=== PATIENT | female | born 1945 | race Two or more races ===

== ENCOUNTER 2017-01-14 19:24 | Emergency (ER) | payer MEDICARE, OTHER ==
[2017-01-14 20:51] VITALS: BP 102/66
--- NOTE | 2017-01-14 21:37 | EDM.PDOC ---
ED HPI GENERAL MEDICAL PROBLEM - General Chief Complaint: Chest Pain Stated Complaint: chest pains Time Seen by Provider: 01/14/17 19:33 Source of Information: Reports: Patient History Limitations: Reports: No Limitations - History of Present Illness INITIAL COMMENTS - FREE TEXT/NARRATIVE: History of present illness: [71-year-old female presenting with chest pressure in her upper chest nonradiating associated with some nausea no vomiting diaphoresis lightheadedness or shortness of breath. She's not had anything like this before. She was working outside in the garden all day and doing well and feeling fine and came in was just sitting down relaxing when this came on. She did finally admit that she has tried to quit smoking and she took 2 puffs of the cigarettes and that's when the pain started. He went on for 3 hours and then she finally decided to come in but upon arrival here it seemed to be clearing up and soon after arrival the pain dissipated without any intervention on our part. She has no prior history of coronary disease but does have a history of carotid artery disease and had an endarterectomy on the left side several years ago. She's also status post a gastric bypass. She is on simvastatin for cholesterol. While here she was hungry we gave her some food to eat and afterwards she was very happy and felt like she was a half percent and anxious to go home and was pain-free.] Review of systems: As per history of present illness and below otherwise all systems reviewed and negative. Past medical history: As per history of present illness and as reviewed below otherwise noncontributory. Surgical history: As per history of present illness and as reviewed below otherwise noncontributory. Social history: No reported history of drug or alcohol abuse. Family history: As per history of present illness and as reviewed below otherwise noncontributory. Physical exam: HEENT: Atraumatic, normocephalic, pupils reactive, negative for conjunctival pallor or scleral icterus, mucous membranes moist, throat clear, neck supple, nontender, trachea midline. Lungs: Clear to auscultation, breath sounds equal bilaterally, chest nontender. Heart: S1S2, regular, she does have a 3/6 systolic ejection murmur which she is aware of and apparently has had echocardiogram in the past. I am suspicious this may be an aortic stenosis murmur. Abdomen: Soft, nondistended, nontender. Negative for masses or hepatosplenomegaly. Negative for costovertebral tenderness. Extremities: Atraumatic, negative for cords or calf pain. Neurovascular unremarkable. Neuro: Awake, alert, oriented. Cranial nerves II through XII unremarkable. Cerebellum unremarkable. Motor and sensory unremarkable throughout. Exam nonfocal. Diagnostics: [chest x-ray is unremarkable showing chronic changes from smoking EKG initially had some artifact second EKG does show LVH. No evidence of ischemia or infarct. She is in sinus rhythm. Troponin was negative. She displayed no dysrhythmias while here.] Therapeutics: [] Impression: [chest pain spontaneously resolved] Plan: [she does have significant risk factors with a history of smoking gastric bypass hypercholesterolemia LVH and possible aortic stenosis murmur. I'm her urging her to followup with her primary care physician as soon as possible for consideration of cardiac stress test or perhaps even seeing a flour mixer. This was discussed with her at length. We also discussed the typical symptoms for coronary disease and angina and she's to return to the emergency room immediately if these occur.] Definitive disposition and diagnosis as appropriate pending reevaluation and review of above. Chest Pain Score (Numeric/FACES): 5 - Related Data Allergies Allergy/AdvReac Type Severity Reaction Status Date / Time No Known Allergies Allergy Verified 01/14/17 19:45 Home Meds: Home Meds Aspirin [Adult Low Dose Aspirin EC] 81 mg PO DAILY 01/16/14 [History] Citalopram Hydrobromide [Celexa] 20 mg PO DAILY 01/16/14 [History] Cyanocobalamin (Vitamin B12) [Vitamin B12] 1,000 mcg IM Q30D 01/16/14 [History] Multivitamin [Multivitamins] 1 each PO BID 01/16/14 [History] Simvastatin [Zocor] 20 mg PO BEDTIME 01/16/14 [History] Vitamin B Complex [B-100 Complex] 1 each PO DAILY 01/16/14 [History] Iron,Carbonyl/Ascorbic Acid [Iron 100-Vitamin C Tablet] 1 each PO DAILY [History] Melatonin/Pyridoxine HCl (B6) [Melatonin 10 mg Tablet] 1 each PO BEDTIME [History] Past Medical History Cardiovascular History: Reports: Heart Murmur, High Cholesterol Respiratory History: Reports: Sleep Apnea Other Respiratory History: c-pap Gastrointestinal History: Reports: Cholelithiasis 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: Musculoskeletal History: Reports: Arthritis, Osteoporosis Psychiatric History: Reports: Depression Other Endocrine/Metabolic History: has growth on thyroid they are tracking Hematologic History: Reports: B12 Deficiency, Iron Deficiency, Other (See Below) Other Hematologic History: calcium low - Infectious Disease History Infectious Disease History: Reports: Chicken Pox, Measles, Mumps - Past Surgical History HEENT Surgical History: Reports: Tonsillectomy Cardiovascular Surgical History: Reports: Carotid Endarterectomy GI Surgical History: Reports: Appendectomy, Bariatric Procedure, Cholecystectomy , Colonoscopy, EGD, Hernia, Abdominal Female Surgical History: Reports: Tubal Ligation Social & Family History - Tobacco Use Smoking Status *Q: Current Some Day Smoker Years of Tobacco use: 20 Packs/Tins Daily: 0.1 Used Tobacco, but Quit: Yes Month Tobacco Last Used: 12 Second Hand Smoke Exposure: No - Caffeine Use Caffeine Use: Reports: Coffee - Alcohol Use Days Per Week of Alcohol Use: 0 - Recreational Drug Use Recreational Drug Use: No ED ROS GENERAL - Review of Systems Review Of Systems: ROS reveals no pertinent complaints other than HPI. ED EXAM, GENERAL - Physical Exam Exam: See Below Course - Vital Signs Last Recorded V/S: Last Vital Signs Temp 36.3 C 01/14/17 19:43 Pulse 60 01/14/17 20:30 Resp 12 01/14/17 20:30 BP 102/66 01/14/17 20:30 Pulse Ox 95 01/14/17 20:30 - Orders/Labs/Meds Orders: Active Orders 24 hr Category Date Time Status EKG Documentation Completion [RC] ASDIRECTED Care 01/14/17 19:46 Active EKG Documentation Completion [RC] ASDIRECTED Care 01/14/17 21:13 Active Chest 1V Frontal [CR] Stat Exams 01/14/17 19:45 Taken EKG 12 Lead [EK] Stat Ther 01/14/17 19:45 Ordered EKG 12 Lead [EK] Stat Ther 01/14/17 21:13 Ordered Labs: Laboratory Tests 01/14/17 01/14/17 Range/Units 20:00 20:00 WBC 6.4 (4.5-11.0) K/uL RBC 4.52 (3.30-5.50) M/uL Hgb 13.7 (12.0-15.0) g/dL Hct 40.4 (36.0-48.0) % MCV 89 (80-98) fL MCH 30 (27-31) pg MCHC 34 (32-36) % Plt Count 292 (150-400) K/uL Neut % (Auto) 53 (36-66) % Lymph % (Auto) 38 (24-44) % [place] % (Auto) 6 (2-6) % Eos % (Auto) 3 (2-4) % Baso % (Auto) 1 (0-1) % Sodium 139 L (140-148) mmol/L Potassium 4.0 (3.6-5.2) mmol/L Chloride 105 (100-108) mmol/L Carbon Dioxide 27 (21-32) mmol/L Anion Gap 11.0 (5.0-14.0) mmol/L BUN 13 (7-18) mg/dL Creatinine 0.8 (0.6-1.0) mg/dL Est Cr Clr Drug Dosing 52.58 mL/min Estimated GFR (MDRD) > 60 (>60) Glucose 91 (74-106) mg/dL Calcium 9.1 (8.5-10.1) mg/dL Total Bilirubin 0.2 (0.2-1.0) mg/dL AST 29 (15-37) U/L ALT 15 (12-78) U/L Alkaline Phosphatase 65 (46-116) U/L Troponin I < 0.017 (0.000-0.056) ng/mL Total Protein 6.2 L (6.4-8.2) g/dL Albumin 3.2 L (3.4-5.0) g/dL Globulin 3.0 (2.3-3.5) g/dL Albumin/Globulin Ratio 1.1 L (1.2-2.2) Departure - Departure Time of Disposition: 21:36 Disposition: Home, Self-Care 01 Condition: good Clinical Impression: Chest pain at rest Forms: ED Department Discharge Additional Instructions: please followup with your primary care DrFilipe as soon as possible and discuss the possibility of undergoing a cardiac stress test or been referred to a flour mixer. You have significant risk factors for heart trouble with your murmur and the LVH that we discussed. Certainly if you have began experiencing the symptoms that we discussed that are consistent with heart pain or angina you need to return to the emergency room immediately. - My Orders Last 24 Hours: My Active Orders 01/14/17 19:45 Chest 1V Frontal [CR] Stat EKG 12 Lead [EK] Stat 01/14/17 19:46 EKG Documentation Completion [RC] ASDIRECTED 01/14/17 21:13 EKG Documentation Completion [RC] ASDIRECTED EKG 12 Lead [EK] Stat - Assessment/Plan Last 24 Hours: My Active Orders 01/14/17 19:45 Chest 1V Frontal [CR] Stat EKG 12 Lead [EK] Stat 01/14/17 19:46 EKG Documentation Completion [RC] ASDIRECTED 01/14/17 21:13 EKG Documentation Completion [RC] ASDIRECTED EKG 12 Lead [EK] Stat
--- NOTE | 2017-01-15 08:55 | CR ---
Chest 1V Frontal INDICATION: chest pain FINDINGS: Mild thoracic curve. Osteopenia. Aortic calcification. Chest otherwise negative.
== END 2017-01-14 22:00 | disposition home or self-care (01) ==
LOC: JP.ED 19:24
DX: R07.9 Chest pain, unspecified (principal); E78.00 Pure hypercholesterolemia, unspecified; F32.9 Major depressive disorder, single episode, unspecified; F17.210 Nicotine dependence, cigarettes, uncomplicated; Z90.49 Acquired absence of other specified parts of digestive tract; Z98.84 Bariatric surgery status; Z79.82 Long term (current) use of aspirin; Z79.899 Other long term (current) drug therapy; Z90.89 Acquired absence of other organs; Z98.51 Tubal ligation status
CPT/HCPCS: 36415; 71010; 71010-26; 80053; 84484; 85025; 93005; 93010; 99284; 99285-25

== ENCOUNTER 2017-01-19 07:34 | Emergency (ER) | payer MEDICARE, OTHER ==
--- NOTE | 2017-01-19 08:34 | EDM.PDOC ---
ED HPI GENERAL MEDICAL PROBLEM - General Chief Complaint: Chest Pain Stated Complaint: CHEST PAIN Time Seen by Provider: 01/19/17 07:49 Source of Information: Reports: Patient History Limitations: Reports: No Limitations - History of Present Illness INITIAL COMMENTS - FREE TEXT/NARRATIVE: Having a recurrence of chest pain. Seen here in ED Sunday with similar symptoms and had a normal troponin, chest x-ray. Was discharged with plan to have OP stress test. Seen in clinic on Sunday and was told that someone would call and set up and no one has called. Had another spell this AM, tightness in upper chest, hard to get a full breath. Denies nausea, diaphoresis. Pain is better now. RF of family hx, smoking Onset: Today Duration: Hour(s): (1) Location: Reports: Chest. Denies: Radiates to Quality: Reports: Pressure, Same as Previous Episode Severity: Moderate Worsens with: Reports: Breathing Associated Symptoms: Reports: Shortness of Breath. Denies: Cough, Nausea/ Vomiting Chest Pain Score (Numeric/FACES): 8 - Related Data Allergies Allergy/AdvReac Type Severity Reaction Status Date / Time No Known Allergies Allergy Verified 01/19/17 07:44 Home Meds: Home Meds Aspirin [Adult Low Dose Aspirin EC] 81 mg PO DAILY 01/16/14 [History] Citalopram Hydrobromide [Celexa] 20 mg PO DAILY 01/16/14 [History] Cyanocobalamin (Vitamin B12) [Vitamin B12] 1,000 mcg IM Q30D 01/16/14 [History] Multivitamin [Multivitamins] 1 each PO BID 01/16/14 [History] Simvastatin [Zocor] 20 mg PO BEDTIME 01/16/14 [History] Vitamin B Complex [B-100 Complex] 1 each PO DAILY 01/16/14 [History] Iron,Carbonyl/Ascorbic Acid [Iron 100-Vitamin C Tablet] 1 each PO DAILY [History] Melatonin/Pyridoxine HCl (B6) [Melatonin 10 mg Tablet] 1 each PO BEDTIME [History] Calcium Carbonate/Vitamin D3 [Calcium 600 + Vit D 400 Softgl] 1 tab PO DAILY [History] Potassium Gluconate [Potassium] 1 tab PO DAILY 01/19/17 [History] Past Medical History Cardiovascular History: Reports: Heart Murmur, High Cholesterol Respiratory History: Reports: Sleep Apnea Other Respiratory History: c-pap Gastrointestinal History: Reports: Cholelithiasis 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: Musculoskeletal History: Reports: Arthritis, Osteoporosis Psychiatric History: Reports: Depression Other Endocrine/Metabolic History: has growth on thyroid they are tracking Hematologic History: Reports: B12 Deficiency, Iron Deficiency, Other (See Below) Other Hematologic History: calcium low - Infectious Disease History Infectious Disease History: Reports: Chicken Pox, Measles, Mumps - Past Surgical History HEENT Surgical History: Reports: Tonsillectomy Cardiovascular Surgical History: Reports: Carotid Endarterectomy GI Surgical History: Reports: Appendectomy, Bariatric Procedure, Cholecystectomy , Colonoscopy, EGD, Hernia, Abdominal Female Surgical History: Reports: Tubal Ligation Social & Family History - Tobacco Use Smoking Status *Q: Current Some Day Smoker Years of Tobacco use: 20 Packs/Tins Daily: 0.1 Used Tobacco, but Quit: Yes Month Tobacco Last Used: 12 Second Hand Smoke Exposure: No - Caffeine Use Caffeine Use: Reports: Coffee - Alcohol Use Days Per Week of Alcohol Use: 0 - Recreational Drug Use Recreational Drug Use: No ED ROS GENERAL - Review of Systems Review Of Systems: See Below Constitutional: Denies: Fever, Chills, Malaise HEENT: Reports: No Symptoms Respiratory: Reports: Shortness of Breath. Denies: Wheezing, Pleuritic Chest Pain, Cough Cardiovascular: Reports: Chest Pain. Denies: Blood Pressure Problem, Dyspnea on Exertion, Lightheadedness, Palpitations Endocrine: Reports: No Symptoms GI/Abdominal: Denies: Abdominal Pain, Nausea, Vomiting Musculoskeletal: Reports: No Symptoms Skin: Reports: No Symptoms Neurological: Reports: No Symptoms Psychiatric: Reports: No Symptoms Hematologic/Lymphatic: Reports: No Symptoms Immunologic: Reports: No Symptoms ED EXAM, GENERAL - Physical Exam Exam: See Below Exam Limited By: No Limitations General Appearance: Alert, No Apparent Distress Ears: Normal External Exam Nose: Normal Inspection Throat/Mouth: Normal Inspection, Normal Oropharynx Head: Atraumatic, Normocephalic Neck: Normal Inspection, Supple, Non-Tender Respiratory/Chest: No Respiratory Distress, Lungs Clear, Normal Breath Sounds, No Accessory Muscle Use, Chest Non-Tender Cardiovascular: Normal Peripheral Pulses, Regular Rate, Rhythm, No Edema, Systolic Murmur (best heard over LSB, no radiation) GI/Abdominal: Normal Bowel Sounds, Soft Back Exam: Normal Inspection Extremities: Normal Inspection, Normal Range of Motion, No Pedal Edema Neurological: Alert, Oriented, CN II-XII Intact Psychiatric: Normal Affect, Normal Mood EKG INTERPRETATION EKG Date: 01/19/17 Time: 07:37 Rhythm: NSR [place]: Normal P-Wave: Present QRS: Normal ST-T: Normal QT: Normal Comparison: No Change Course - Vital Signs Last Recorded V/S: Last Vital Signs Temp 36.6 C 01/19/17 09:04 Pulse 73 01/19/17 09:04 Resp 16 01/19/17 09:04 BP 129/63 01/19/17 09:04 Pulse Ox 94 L 01/19/17 09:04 - Orders/Labs/Meds Orders: Active Orders 24 hr Category Date Time Status Cardiac Monitoring [RC] .As Directed Care 01/19/17 08:23 Active EKG Documentation Completion [RC] ASDIRECTED Care 01/19/17 08:24 Active EKG 12 Lead [EK] Stat Ther 01/19/17 08:24 Ordered Labs: Laboratory Tests 01/19/17 01/19/17 Range/Units 08:31 08:31 D-Dimer, Quantitative 110 (0.0-400.0) ng/mL Troponin I < 0.017 (0.000-0.056) ng/mL Departure - Departure Time of Disposition: 09:38 Disposition: Home, Self-Care 01 Clinical Impression: Chest pain at rest Referrals: Ronit Flores NP [Primary Care Provider] - Forms: ED Department Discharge - Problem List & Annotations (1) Chest pain at rest SNOMED Code(s): 1065489 Code(s): R07.9 - CHEST PAIN, UNSPECIFIED Status: Acute Current Visit: Yes - Problem List Review Problem List Initiated/Reviewed/Updated: Yes - My Orders Last 24 Hours: My Active Orders 01/19/17 08:23 Cardiac Monitoring [RC] .As Directed 01/19/17 08:24 EKG Documentation Completion [RC] ASDIRECTED EKG 12 Lead [EK] Stat - Assessment/Plan Last 24 Hours: My Active Orders 01/19/17 08:23 Cardiac Monitoring [RC] .As Directed 01/19/17 08:24 EKG Documentation Completion [RC] ASDIRECTED EKG 12 Lead [EK] Stat Assessment:: Presented with recurrent chest pain. Repeat troponin testing and EKG normal. Has been scheduled for OP stress testing on January 22 Plan: Will be discharged to home with planned OP stress testing on January 22 at 0815. She was given instructions for the stress test. She has annual exam today and will set follow-up of her stress test
[2017-01-19 09:05] VITALS: BP 129/63
== END 2017-01-19 09:56 | disposition home or self-care (01) ==
LOC: JP.ED 07:34
DX: R07.9 Chest pain, unspecified (principal); F17.210 Nicotine dependence, cigarettes, uncomplicated; M19.90 Unspecified osteoarthritis, unspecified site; Z98.84 Bariatric surgery status; Z98.51 Tubal ligation status; Z90.49 Acquired absence of other specified parts of digestive tract; Z98.890 Other specified postprocedural states; Z79.899 Other long term (current) drug therapy; Z79.82 Long term (current) use of aspirin
CPT/HCPCS: 36415; 84484; 85379; 93005; 93010; 99284; 99285-25

== ENCOUNTER 2017-02-22 07:16 | Emergency (ER) | payer MEDICARE, OTHER ==
[2017-02-22 07:37] VITALS: BP 130/83
--- NOTE | 2017-02-22 08:08 | EDM.PDOC ---
ED HPI GENERAL MEDICAL PROBLEM - General Chief Complaint: Upper Extremity Injury/Pain Stated Complaint: BLEEDING FROM IV SITE Time Seen by Provider: 02/22/17 08:03 Source of Information: Reports: Patient History Limitations: Reports: No Limitations - History of Present Illness INITIAL COMMENTS - FREE TEXT/NARRATIVE: pt had an angiogram on Sunday and she is having some oozing from the wound. Onset: Gradual Duration: Day(s): Location: Reports: Upper Extremity, Right Associated Symptoms: Reports: No Other Symptoms Denies Pain Score (Numeric/FACES): 0 - Related Data Allergies Allergy/AdvReac Type Severity Reaction Status Date / Time No Known Allergies Allergy Verified 02/22/17 07:25 Home Meds: Home Meds Aspirin [Adult Low Dose Aspirin EC] 81 mg PO DAILY 01/16/14 [History] Citalopram Hydrobromide [Celexa] 20 mg PO DAILY 01/16/14 [History] Cyanocobalamin (Vitamin B12) [Vitamin B12] 1,000 mcg IM DAILY 01/16/14 [History] Multivitamin [Multivitamins] 1 each PO BID 01/16/14 [History] Simvastatin [Zocor] 20 mg PO BEDTIME 01/16/14 [History] Vitamin B Complex [B-100 Complex] 1 each PO DAILY 01/16/14 [History] Iron,Carbonyl/Ascorbic Acid [Iron 100-Vitamin C Tablet] 1 each PO DAILY [History] Melatonin/Pyridoxine HCl (B6) [Melatonin 10 mg Tablet] 1 each PO BEDTIME [History] Potassium Gluconate [Potassium] 1 tab PO DAILY 01/19/17 [History] Calcium Infusion .4X/YEAR 01/22/17 [History] ClonazePAM [KlonoPIN] 1 mg PO TID PRN 02/22/17 [History] Metoprolol Succinate [Toprol XL] 25 mg PO DAILY 02/22/17 [History] Past Medical History Cardiovascular History: Reports: Heart Murmur, High Cholesterol Respiratory History: Reports: Sleep Apnea Other Respiratory History: c-pap Gastrointestinal History: Reports: Cholelithiasis [employer]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: Musculoskeletal History: Reports: Arthritis, Osteoporosis Psychiatric History: Reports: Depression Other Endocrine/Metabolic History: has growth on thyroid they are tracking Hematologic History: Reports: B12 Deficiency, Iron Deficiency, Other (See Below) Other Hematologic History: calcium low - Infectious Disease History Infectious Disease History: Reports: Chicken Pox, Measles, Mumps - Past Surgical History HEENT Surgical History: Reports: Tonsillectomy Cardiovascular Surgical History: Reports: Carotid Endarterectomy, Other (See Below) Other Cardiovascular Surgeries/Procedures: angoigram 02/19/2017 GI Surgical History: Reports: Appendectomy, Bariatric Procedure, Cholecystectomy , Colonoscopy, EGD, Hernia, Abdominal Female Surgical History: Reports: Tubal Ligation Social & Family History - Tobacco Use Smoking Status *Q: Current Every Day Smoker Years of Tobacco use: 50 Packs/Tins Daily: 0.5 Used Tobacco, but Quit: No Month Tobacco Last Used: 12 Second Hand Smoke Exposure: No - Caffeine Use Caffeine Use: Reports: Coffee, Tea - Alcohol Use Days Per Week of Alcohol Use: 0 - Recreational Drug Use Recreational Drug Use: No Review of Systems - Review of Systems Review Of Systems: See Below Constitutional: Reports: No Symptoms Eyes: Reports: No Symptoms Ears: Reports: No Symptoms Nose: Reports: No Symptoms Mouth/Throat: Reports: No Symptoms Respiratory: Reports: Cough Cardiovascular: Reports: No Symptoms GI/Abdominal: Reports: No Symptoms Genitourinary: Reports: No Symptoms Musculoskeletal: Reports: No Symptoms, Other (pt is oozing from the rt wrist where she had an angiogram. ) ED EXAM, GENERAL - Physical Exam Exam: See Below Free Text/Narrative:: pt has some oozing from the angiogram site. She has continued her asa. She has a coronary angiogram which was neg and no stents were placed. Exam Limited By: No Limitations General Appearance: Alert, Anxious Ears: Normal TMs Nose: Normal Inspection Throat/Mouth: Normal Inspection Head: Atraumatic Neck: Normal Inspection Respiratory/Chest: No Respiratory Distress Cardiovascular: Regular Rate, Rhythm GI/Abdominal: Soft, Non-Tender (Female) Exam: Deferred Rectal (Female) Exam: Deferred Back Exam: Normal Inspection Extremities: Other ( Pt has a tiny ite that is ozzing . This does not look red or infected. A pressure dressing was applied and this shpould be left for the next 24 hours. ) Neurological: Alert, Normal Cognition Psychiatric: Normal Mood Course - Vital Signs Last Recorded V/S: Last Vital Signs Temp 37 C 02/22/17 07:49 Pulse 80 02/22/17 07:49 Resp 16 02/22/17 07:49 BP 130/83 02/22/17 07:49 Pulse Ox 98 02/22/17 07:49 - Re-Assessments/Exams Free Text/Narrative Re-Assessment/Exam: 02/22/17 08:09 a pressure dressing was allied and this should be left in place for the next 24 hours. Departure - Departure Time of Disposition: 08:09 Disposition: Home, Self-Care 01 Condition: Fair Clinical Impression: Bleeding from wound - Discharge Information Forms: ED Department Discharge Care Plan Goals: leave the pressure dressing on for the next 24 hours, elevate the arm when resting. No asa for the next 3 days then resume.
== END 2017-02-22 08:21 | disposition home or self-care (01) ==
LOC: JP.ED 07:16
DX: I97.610 Postprocedural hemorrhage of a circulatory system organ or structure following a cardiac catheterization (principal); F17.210 Nicotine dependence, cigarettes, uncomplicated; E78.00 Pure hypercholesterolemia, unspecified; M81.0 Age-related osteoporosis without current pathological fracture; F41.9 Anxiety disorder, unspecified; Z98.890 Other specified postprocedural states; Z90.49 Acquired absence of other specified parts of digestive tract; Z79.899 Other long term (current) drug therapy; Z79.82 Long term (current) use of aspirin
CPT/HCPCS: 99283

== ENCOUNTER 2019-02-08 20:14 | Emergency (ER) | payer MEDICARE, BC ==
[2019-02-08 21:22] VITALS: BP 145/62; PULSE 84
--- NOTE | 2019-02-08 21:50 | EDM.PDOC ---
ED HPI GENERAL MEDICAL PROBLEM - General Chief Complaint: Skin Complaint Stated Complaint: INFECTED BUG BITE ON BACK OF RT KNEE Time Seen by Provider: 02/08/19 21:39 - History of Present Illness INITIAL COMMENTS - FREE TEXT/NARRATIVE: was out gardening the last couple of days; noticed today that she had a "bite" to the back of her right knee. There is a bullseye. She didn't take a tick off. Somewhat tender. Red, warm. No discharge. Normal ROm. Onset: Gradual Location: Reports: Lower Extremity, Right Quality: Reports: Ache Severity: Moderate Improves with: Reports: None Worsens with: Reports: None Right Knee Pain Score (Numeric/FACES): 4 - Related Data Allergies Allergy/AdvReac Type Severity Reaction Status Date / Time No Known Allergies Allergy Verified 02/08/19 21:25 Home Meds: Home Meds Aspirin [Adult Low Dose Aspirin EC] 81 mg PO DAILY 01/16/14 [History] Citalopram Hydrobromide [Celexa] 20 mg PO DAILY 01/16/14 [History] Cyanocobalamin (Vitamin B12) [Vitamin B12] 1,000 mcg IM ASDIRECTED 01/16/14 [ History] Multivitamin [Multivitamins] 1 each PO BID 01/16/14 [History] Simvastatin [Zocor] 20 mg PO BEDTIME 01/16/14 [History] Vitamin B Complex [B-100 Complex] 1 each PO DAILY 01/16/14 [History] Iron,Carbonyl/Ascorbic Acid [Iron 100-Vitamin C Tablet] 1 each PO DAILY [History] Melatonin/Pyridoxine HCl (B6) [Melatonin 10 mg Tablet] 1 each PO DAILY 07/28/15 [History] ClonazePAM [KlonoPIN] 1 mg PO TID PRN 02/22/17 [History] Past Medical History Cardiovascular History: Reports: Heart Murmur, High Cholesterol Respiratory History: Reports: Sleep Apnea Other Respiratory History: c-pap Gastrointestinal History: Reports: Cholelithiasis, GERD 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: Musculoskeletal History: Reports: Arthritis, Osteoporosis Psychiatric History: Reports: Depression Other Endocrine/Metabolic History: has growth on thyroid they are tracking Hematologic History: Reports: B12 Deficiency, Iron Deficiency, Other (See Below) Other Hematologic History: calcium low - Infectious Disease History Infectious Disease History: Reports: Chicken Pox, Measles, Mumps - Past Surgical History HEENT Surgical History: Reports: Tonsillectomy Cardiovascular Surgical History: Reports: Carotid Endarterectomy, Other (See Below) Other Cardiovascular Surgeries/Procedures: angoigram 02/19/2017 GI Surgical History: Reports: Appendectomy, Bariatric Procedure, Cholecystectomy , Colonoscopy, EGD, Hernia, Abdominal Female Surgical History: Reports: Tubal Ligation Social & Family History - Tobacco Use Smoking Status *Q: Current Every Day Smoker Years of Tobacco use: 50 Packs/Tins Daily: 0.1 - Caffeine Use Caffeine Use: Reports: Coffee, Tea ED ROS GENERAL - Review of Systems Review Of Systems: See Below Constitutional: Reports: No Symptoms Respiratory: Reports: No Symptoms Cardiovascular: Reports: No Symptoms GI/Abdominal: Reports: No Symptoms Musculoskeletal: Reports: No Symptoms Skin: Reports: Other (right knee, underside, red, warm with bullseye. No discharge; approximate size of plum in diameter.) Neurological: Reports: No Symptoms Psychiatric: Reports: No Symptoms ED EXAM, SKIN/RASH Exam: See Below Exam Limited By: No Limitations General Appearance: Alert, WD/WN, No Apparent Distress Head: Atraumatic, Normocephalic Neck: Normal Inspection, Full Range of Motion Respiratory/Chest: Lungs Clear, Normal Breath Sounds Cardiovascular: Regular Rate, Rhythm GI/Abdominal: Normal Bowel Sounds, Soft Extremities: Normal Inspection, Normal Range of Motion Neurological: Alert, Oriented, CN II-XII Intact Psychiatric: Normal Affect, Normal Mood Skin: Warm, Dry, Intact, Wound/Incision (bullseye to the back of her right leg, plum sized in diameter. No discharge) Location, Skin: Lower Extremity, Right Associated features: Warmth, Swelling, Induration Course - Vital Signs Last Recorded V/S: Last Vital Signs Temp 96.6 F 02/08/19 21:29 Pulse 84 02/08/19 21:29 Resp 18 02/08/19 21:29 BP 145/62 H 02/08/19 21:29 Pulse Ox 97 02/08/19 21:29 Departure - Departure Time of Disposition: 21:48 Disposition: Home, Self-Care 01 Condition: Good Clinical Impression: Tick bite of right lower leg, Lyme disease, Cellulitis - Discharge Information *PRESCRIPTION DRUG MONITORING PROGRAM REVIEWED*: Not Applicable *COPY OF PRESCRIPTION DRUG MONITORING REPORT IN PATIENT EARL: Not Applicable Instructions: Tick Bite Information, Adult, [id number], Cellulitis, Adult 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 Care 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] - Forms: ED Department Discharge Additional Instructions: tylenol/motrin for pain and swelling Ice the affected area Doxycyline as directed; take whole course Follow up with your doctor early this week Return to ER if not improving as anticipated - Problem List & Annotations (1) Tick bite of right lower leg SNOMED Code(s): 87278114 Code(s): S80.861A - INSECT BITE (NONVENOMOUS), RIGHT LOWER LEG, INIT ENCNTR; W57.XXXA - BIT/STUNG BY NONVENOM INSECT & OTH NONVENOM ARTHROPODS, INIT Status : Acute Priority: Low Qualifiers: Encounter type: initial encounter Qualified Code(s): S80.861A - Insect bite (nonvenomous), right lower leg, initial encounter; W57.XXXA - Bitten or stung by nonvenomous insect and other nonvenomous arthropods, initial encounter - Problem List Review Problem List Initiated/Reviewed/Updated: Yes
== END 2019-02-08 21:51 | disposition home or self-care (01) ==
LOC: JP.ED 20:14
DX: S80.861A Insect bite (nonvenomous), right lower leg, initial encounter (principal); L03.115 Cellulitis of right lower limb; A69.20 Lyme disease, unspecified; E78.00 Pure hypercholesterolemia, unspecified; K21.9 Gastro-esophageal reflux disease without esophagitis; F32.9 Major depressive disorder, single episode, unspecified; F17.210 Nicotine dependence, cigarettes, uncomplicated; Z79.82 Long term (current) use of aspirin; Z79.899 Other long term (current) drug therapy; W57.XXXA Bitten or stung by nonvenomous insect and other nonvenomous arthropods, initial encounter
CPT/HCPCS: 99282; 99283

== ENCOUNTER 2019-04-12 19:00 | Emergency (ER) | payer MEDICARE, BC ==
[2019-04-12] MEDS ORDERED: Meclizine 25 MG Tab PO ONE (19:08)
[2019-04-12 19:18] VITALS: BP 128/69
--- NOTE | 2019-04-12 19:22 | EDM.PDOC ---
ED HPI GENERAL MEDICAL PROBLEM - General Chief Complaint: Syncope Stated Complaint: DIZZINESS Time Seen by Provider: 04/12/19 19:05 Source of Information: Reports: Patient, EMS, Old Records History Limitations: Reports: No Limitations - History of Present Illness INITIAL COMMENTS - FREE TEXT/NARRATIVE: 73 yo female bent over to pick something up off the floor and got sudden onset of severe vertigo associated with blurred vision, diaphoresis, and a tendency to fall to the left. Sx's lasted about 30 min. EMS transported with stable vitals and resolved sx's. Had some perioral numbness that was the last sx to resolve. Onset: Today, Sudden Onset Date: 04/12/19 Onset Time: 18:05 Duration: Minutes: (30), Resolved Prior to Arrival Location: Reports: Head Quality: Reports: Other (no pain) Severity: Severe Improves with: Reports: Other (time) Worsens with: Reports: Other (bending over) Context: Reports: Other (see HPI) Associated Symptoms: Reports: Diaphoresis, Nausea/Vomiting (no vomiting). 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: Other (see below) (none) - Related Data Allergies Allergy/AdvReac Type Severity Reaction Status Date / Time No Known Allergies Allergy Verified 04/12/19 19:56 Home Meds: Home Meds Citalopram Hydrobromide [Celexa] 20 mg PO DAILY 01/16/14 [History] Cyanocobalamin (Vitamin B12) [Vitamin B12] 1,000 mcg IM ASDIRECTED 01/16/14 [ History] Multivitamin [Multivitamins] 1 each PO BID 01/16/14 [History] Simvastatin [Zocor] 20 mg PO BEDTIME 01/16/14 [History] Vitamin B Complex [B-100 Complex] 1 each PO DAILY 01/16/14 [History] Iron,Carbonyl/Ascorbic Acid [Iron 100-Vitamin C Tablet] 1 each PO DAILY [History] Melatonin/Pyridoxine HCl (B6) [Melatonin 10 mg Tablet] 1 each PO DAILY 07/28/15 [History] Past Medical History Cardiovascular History: Reports: Heart Murmur, High Cholesterol Respiratory History: Reports: Sleep Apnea Other Respiratory History: c-pap Gastrointestinal History: Reports: Cholelithiasis, GERD 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: Musculoskeletal History: Reports: Arthritis, Osteoporosis Psychiatric History: Reports: Depression Other Endocrine/Metabolic History: has growth on thyroid they are tracking Hematologic History: Reports: B12 Deficiency, Iron Deficiency, Other (See Below) Other Hematologic History: calcium low - Infectious Disease History Infectious Disease History: Reports: Chicken Pox, Measles, Mumps - Past Surgical History HEENT Surgical History: Reports: Tonsillectomy Cardiovascular Surgical History: Reports: Carotid Endarterectomy, Other (See Below) Other Cardiovascular Surgeries/Procedures: angoigram 02/19/2017 GI Surgical History: Reports: Appendectomy, Bariatric Procedure, Cholecystectomy , Colonoscopy, EGD, Hernia, Abdominal Female Surgical History: Reports: Tubal Ligation Social & Family History - Caffeine Use Caffeine Use: Reports: Coffee, Tea ED ROS GENERAL - Review of Systems Review Of Systems: See Below Constitutional: Reports: Diaphoresis HEENT: Reports: Vision Change (hard to focus) Respiratory: Reports: No Symptoms Cardiovascular: Reports: No Symptoms Endocrine: Reports: No Symptoms GI/Abdominal: Reports: Nausea. Denies: Abdominal Pain, Black Stool, Bloody Stool, Constipation, Diarrhea, Decreased Appetite, Distension, Flatus, Hematemesis, Hematochezia, Melena, Vomiting : Reports: No Symptoms Musculoskeletal: Reports: No Symptoms Skin: Reports: Diaphoresis Neurological: Reports: Dizziness (vertigo), Numbness (perioral, now resolved) Psychiatric: Reports: No Symptoms ED EXAM, DIZZINESS - Physical Exam Exam: See Below Exam Limited By: No Limitations General Appearance: Alert, WD/WN, No Apparent Distress Eye Exam: Left Eye: Nystagmus (subtle nystagmus on leftward gaze.), Bilateral Eye: EOMI, Normal Inspection, PERRL Nystagmus: worsens with head to L Ears: Normal External Exam, Normal Canal, Hearing Grossly Normal, Normal TMs Nose: Normal Inspection, No Blood Throat/Mouth: Normal Inspection, Normal Lips, Normal Oropharynx, Normal Voice, No Airway Compromise Head Exam: Atraumatic, Normocephalic Vertigo: No: reproducible Neck: Normal Inspection, Supple, Non-Tender Respiratory/Chest: No Respiratory Distress, Lungs Clear, Normal Breath Sounds, No Accessory Muscle Use Cardiovascular: Regular Rate, Rhythm, No Edema GI/Abdominal: Normal Bowel Sounds, Soft, Non-Tender, No Distention Neurological: Alert, Normal Mood/Affect, Normal Dorsiflexion, CN II-XII Intact, No Motor/Sensory Deficits, Oriented x 3 Back Exam: Normal Inspection. No: CVA Tenderness (R), CVA Tenderness (L) Extremities: Normal Inspection, Normal Range of Motion, Non-Tender, No Pedal Edema Psychiatric: Normal Affect, Normal Mood Skin Exam: Warm, Dry, Intact, Normal Color, No Rash Course - Vital Signs Text/Narrative:: Ambulated in the ER without difficulty. Last Recorded V/S: Last Vital Signs Temp 35.7 C 04/12/19 20:02 Pulse 68 04/12/19 20:02 Resp 12 04/12/19 20:02 BP 128/69 04/12/19 20:02 Pulse Ox 96 04/12/19 20:02 - Orders/Labs/Meds Meds: Medications Discontinued Medications Generic Name Dose Route Start Last Admin Trade Name Roney PRN Reason Stop Dose Admin Meclizine HCl 25 mg 04/12/19 19:08 04/12/19 19:36 Antivert PO 04/12/19 19:09 25 mg ONETIME ONE Administration Departure - Departure Time of Disposition: 20:11 Disposition: Home, Self-Care 01 Condition: Good Clinical Impression: BPV (benign positional vertigo) Qualifiers: Laterality: left Qualified Code(s): H81.12 - Benign paroxysmal vertigo, left ear - Discharge Information *PRESCRIPTION DRUG MONITORING PROGRAM REVIEWED*: No *COPY OF PRESCRIPTION DRUG MONITORING REPORT IN PATIENT EARL: No Instructions: How to Perform the Hernan Maneuver, Benign Positional Vertigo Referrals: PCP,None [Primary Care Provider] - Forms: ED Department Discharge Additional Instructions: Take meclizine 25 mg every 6 hrs as needed for vertigo. Follow up with your doctor for recheck. Return if worse.
== END 2019-04-12 20:25 | disposition home or self-care (01) ==
LOC: JP.ED 19:00
DX: H81.12 Benign paroxysmal vertigo, left ear (principal); K21.9 Gastro-esophageal reflux disease without esophagitis; F32.9 Major depressive disorder, single episode, unspecified; E78.00 Pure hypercholesterolemia, unspecified; Z79.899 Other long term (current) drug therapy
CPT/HCPCS: 99283; A9270